=== PATIENT | male | born 1955 | race Caucasian/White ===

== ENCOUNTER 2019-11-02 08:00 | Outpatient (RCR) | payer SELFPAY ==
[~2019-11-02 08:00] MED LIST: LOPID 600M600 MG/TAB PO; NEURONTIN600 MG/TAB PO; NO HOME MEDICATIONS; NORCO 325 MG-7.1 TAB PO; ZYLOPRIM 300MG300 MG PO
== END 2019-12-23 | disposition home or self-care (01) ==
LOC: MKS.ESL.PT
DX: G60.9 Hereditary and idiopathic neuropathy, unspecified (principal)

== ENCOUNTER 2019-11-02 08:00 | Outpatient (RCR) | payer MEDICARE, BC | END 2019-12-23 | disposition still patient (30) | LOC: MKS.ESL.PT | DX: G60.9 Hereditary and idiopathic neuropathy, unspecified (principal) ==